=== PATIENT | male | born 1995 | race Caucasian/White ===

== ENCOUNTER 2021-08-02 08:28 | Emergency (ER) | payer OTHER, SELFPAY ==
[2021-08-02 08:35] VITALS: BP 147/88; PULSE 58; RESP 18; TEMP 36.4; O2SAT 99; BMI 27.1
--- NOTE | 2021-08-02 08:54 | ED_ITS ---
HPI - Abdominal Pain General Chief Complaint: Abdominal Pain Stated Complaint: pain and cramps on rt side Time Seen by Provider: 08/02/21 08:43 Source: patient Mode of arrival: Ambulatory History of Present Illness HPI narrative: The patient awoke with right flank pain, radiating to his testicles. His urine is dark. He was well when he went to bed last night. He has nausea now, no vomiting. His bowel movements have been normal. He has been eating and drinking well, dehydration seems unlikely. He has no fever chills. He denies dysuria. has no history of kidney stones. He is otherwise well. He has no chronic medical problems. He is on no meds. 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 Related Data Previous Rx's Medication Instructions Recorded hydrocodone 5 mg-acetaminophen 325 1 tab PO Q4-6H PRN #14 tab 08/02/21 mg tablet ondansetron 4 mg disintegrating 4 mg PO Q4-6H PRN #15 tab 08/02/21 tablet tamsulosin 0.4 mg capsule (Flomax) 0.4 mg PO DAILY #10 cap 08/02/21 Allergies Allergy/AdvReac Type Severity Reaction Status Date / Time No Known Drug Allergies Allergy Verified 08/02/21 08:51 Review of Systems Constitutional Constitutional: Reports as per HPI, Denies chills, Denies fatigue, Denies fever(s) and Denies headache(s) ENT Ears, Nose, Mouth, and Throat: Denies dizziness, Denies headache(s) and Denies sore throat Cardiovascular Cardiovascular: Denies chest pain, Denies syncope, Denies rapid heart rate and Denies dyspnea Respiratory Respiratory: Denies chest congestion, Denies cough and Denies dyspnea Gastrointestinal Gastrointestinal: Reports as per HPI Genitourinary Genitourinary: Reports as per HPI Musculoskeletal Musculoskeletal: Reports back pain Integumentary/Breasts Skin/Breast: Denies lesions and Denies rash Neurologic Neurologic: Denies dizziness, Denies syncope and Denies headache(s) Endocrine Endocrine: Denies fatigue Hematologic/Lymphatic On Anticoagulants: No Patient History Medical History (Updated 08/02/21 @ 12:33 by Jamar Kaufman MD) Healthy adult Surgical History (Updated 08/02/21 @ 09:55 by Jamar Kaufman MD) No significant past surgical history Social History Smoking Status: Never smoker Smoking Status: Never smoker alcohol intake frequency: 0-2 drinks per day Substance Use Type: does not use Exam Initial Vital Signs Initial Vital Signs: Vital Signs Temperature 97.6 F 08/02/21 08:35 Pulse Rate 58 L 08/02/21 08:35 Respiratory Rate 18 08/02/21 08:35 Blood Pressure 147/88 H 08/02/21 08:35 Pulse Oximetry 99 08/02/21 08:35 Const General: cooperative, healthy appearing, comfortable and well groomed [facility] Head: normocephalic and atraumatic Face and sinus: normal facial exam Mouth: oral mucosae normal Eyes General: appearance normal, both eyes and all related structures Resp Auscultation: clear to auscultation bilaterally Cardio Rate: regular rate Rhythm: regular rhythm Heart Sounds: S1 normal, S2 normal and no murmurs GI Inspection: normal to inspection Palpation: soft, No mass and No tender Percussion: normal to percussion Auscultation: normal bowel sounds Back/Spine/Pelvis Back: No back tenderness Skin General: no rashes or lesions noted Neuro General: patient alert and patient oriented x3 Extrem General: normal to inspection and no calf tenderness Psych Appearance: grossly normal Course Course Course Narrative: The patient has been hydrated. He has received Toradol for pain. The pain radiated from his right mid back to his right mid abdomen. 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 He did vomit once, nausea does not persist. CT rev ealed an obstructing 3 mm stone at the right proximal ureter. He has been started on Flomax. Hematuria persists. Orders Ordered: ED Orders 08/02/21 08:45 CKMB Panel (CK + CKMB) Stat Complete Blood Count AUTO DIFF Stat Comprehensive Metabolic Panel Stat Lipase Stat 08/02/21 10:50 Ictotest Urine Stat Urine Culture Stat Urine Microscopic Stat 08/02/21 11:47 CT kidney ureter bladder (KUB) Stat Discontinued Medications Sodium Chloride (Normal Saline 0.9%) 1,000 mls @ 1,000 mls/hr IV BOLUS ONE Stop: 08/02/21 09:51 Last Infusion: 08/02/21 10:00 Dose: 0 mls/hr Documented by: Admin: 08/02/21 08:57 Dose: 1,000 mls/hr Documented by: ROBERT Sodium Chloride (Normal Saline 0.9%) 1,000 mls @ 1,000 mls/hr IV BOLUS ONE Stop: 08/02/21 10:43 Last Infusion: 08/02/21 11:21 Dose: 0 mls/hr Documented by: Admin: 08/02/21 10:01 Dose: 1,000 mls/hr Documented by: ROBERT Ketorolac Tromethamine (Ketorolac 30 Mg/Ml Vial) 30 mg IV NOW ONE Stop: 08/02/21 08:54 Last Admin: 08/02/21 08:57 Dose: 30 mg Documented by: ROBERT Morphine Sulfate (Morphine 4 Mg/Ml Inj) 4 mg IM NOW ONE Stop: 08/02/21 08:53 Last Admin: 08/02/21 08:57 Dose: Not Given Documented by: ROBERT Ondansetron HCl (Ondansetron 4 Mg/2 Ml Inj) 4 mg IV NOW ONE Stop: 08/02/21 08:53 Last Admin: 08/02/21 08:57 Dose: 4 mg Documented by: ROBERT Tamsulosin HCl (Tamsulosin 0.4 Mg Capsule) 0.4 mg PO NOW ONE Stop: 08/02/21 12:16 Last Admin: 08/02/21 12:22 Dose: 0.4 mg Documented by: KEN Vital Signs Vital signs: Vital Signs - 8 hr 08/02/21 08:35 08/02/21 11:00 08/02/21 11:30 Temperature 97.6 F Pulse Rate 58 L 80 82 Respiratory Rate 18 Blood Pressure 147/88 H 126/72 127/71 Pulse Oximetry 99 100 98 MDM - Abdominal Pain Lab Data Result diagrams: 08/02/21 08:45 08/02/21 08:45 Labs: Lab Results 08/02/21 08/02/21 08/02/21 Range/Units 08:45 08:45 10:50 WBC 5.2 (4.5-11.0) X10^3/uL RBC 4.74 (4.5-5.9) X10^6/uL Hgb 15.3 (13.5-17.5) g/dL Hct 44.6 (41-53) % MCV 94.0 (80-100) fL MCH 32.3 (26-34) PG MCHC 34.4 (30-36) % RDW 13.3 (11.6-14.8) % Plt Count 292 (150-400) X10^3/uL Neut % (Auto) 55.6 (50-75) % Lymph % (Auto) 30.5 (25-40) % [place] % (Auto) 9.7 (3-14) % Eos % (Auto) 3.3 (2-4) % Baso % (Auto) 0.9 (0-2) % Neut # (Auto) 2900 (9881-1523) /uL Lymph # (Auto) 1600 (3979-8704) /uL [place] # (Auto) 500 (0-900) /uL Eos # (Auto) 200 (0-450) /uL Baso # (Auto) 0 (0-100) /uL Sodium 140 (137-145) mmol/L Potassium 4.1 (3.4-5.1) mmol/L Chloride 104 (98-107) mmol/L Carbon Dioxide 27 (22-32) mmol/L BUN 21 H (9-20) mg/dL Creatinine 1.55 H (0.66-1.25) mg/dL Estimated GFR 54.9 L (>60) mL/min BUN/Creatinine Ratio 13.5 (6-22) Glucose 111 H (70-100) mg/dL Calcium 9.5 (8.4-10.2) mg/dL Total Bilirubin 0.8 (0.2-1.3) mg/dL AST 30 (17-59) IU/L ALT 20 (<50) IU/L Alkaline Phosphatase 69 (38-126) U/L Total Creatine Kinase 168 (55-170) U/L CK-MB (CK-2) 0.69 (<2.37) ng/mL CK-MB (CK-2) Rel Index 0.4 L (1.5-5.0) % Total Protein 7.7 (6.3-8.2) g/dL Albumin 4.8 (3.5-5.0) g/dL Globulin 2.9 (1.7-4.1) g/dL Albumin/Globulin Ratio 1.7 (1.0-2.8) Lipase 71 (23-300) U/L Ur Bilirubin Confirm (Negative) Urine RBC >100/hpf H (0-5/HPF) Urine WBC 1-5/hpf (0-5/HPF) Ur Squamous Epith Cells 0-1 /hpf (0-5/HPF) Urine Bacteria None seen (None) Urine Mucus 2+ H (Negative) Ur Culture Indicated? Specimen cultured 08/02/21 Range/Units 10:50 WBC (4.5-11.0) X10^3/uL RBC (4.5-5.9) X10^6/uL Hgb (13.5-17.5) g/dL Hct (41-53) % MCV (80-100) fL MCH (26-34) PG MCHC (30-36) % RDW (11.6-14.8) % Plt Count (150-400) X10^3/uL Neut % (Auto) (50-75) % Lymph % (Auto) (25-40) % [place] % (Auto) (3-14) % Eos % (Auto) (2-4) % Baso % (Auto) (0-2) % Neut # (Auto) (4322-9035) /uL Lymph # (Auto) (2737-6132) /uL [place] # (Auto) (0-900) /uL Eos # (Auto) (0-450) /uL Baso # (Auto) (0-100) /uL Sodium (137-145) mmol/L Potassium (3.4-5.1) mmol/L Chloride (98-107) mmol/L Carbon Dioxide (22-32) mmol/L BUN (9-20) mg/dL Creatinine (0.66-1.25) mg/dL Estimated GFR (>60) mL/min BUN/Creatinine Ratio (6-22) Glucose (70-100) mg/dL Calcium (8.4-10.2) mg/dL Total Bilirubin (0.2-1.3) mg/dL AST (17-59) IU/L ALT (<50) IU/L Alkaline Phosphatase (38-126) U/L Total Creatine Kinase (55-170) U/L CK-MB (CK-2) (<2.37) ng/mL CK-MB (CK-2) Rel Index (1.5-5.0) % Total Protein (6.3-8.2) g/dL Albumin (3.5-5.0) g/dL Globulin (1.7-4.1) g/dL Albumin/Globulin Ratio (1.0-2.8) Lipase (23-300) U/L Ur Bilirubin Confirm Negative (Negative) Urine RBC (0-5/HPF) Urine WBC (0-5/HPF) Ur Squamous Epith Cells (0-5/HPF) Urine Bacteria (None) Urine Mucus (Negative) Ur Culture Indicated? Point of care testing: Urine Dip Bedside Urine Glucose Negative Bedside Urine Bilirubin + 1 Bedside Urine Ketone +/- 5 Urine Specific [place] 1.020 Bedside Urine Occult Blood +++ Bedside Urine pH 6.5 Bedside Urine Protein ++ 100 Bedside Urine Urobilinogen 0.2 Bedside Urine Nitrite - Negative Bedside Urine Leukocytes + [address] scan - abdomen/pelvis: Radiologist's Impression: [address] [address] [address] Scan Report Signed Patient: Mani Chao MR#: [id number] : 1995 Acct:[id number] Age/Sex: 25 / M Date of Service: 08/02/21 Loc: ED Accession Number: [id number] ?? Procedure: CT kidney ureter bladder (KUB) Ordering Provider: Jamar Kaufman MD PROCEDURE:? CT KIDNEY URETER BLADDER (KUB) ? INDICATIONS:? Hematuria.? Right flank pain. ? TECHNIQUE:? Axial sections were acquired from the lung bases to the pubic symphysis.? Coronal and sagittal reformats were performed.? For radiation dose reduction, the following was used: ?automated exposure control, adjustment of mA and/or kV according to patient size.? ? COMPARISON:? None. ? FINDINGS:? Image quality:? Excellent.? ? Lung bases:? Unremarkable.? ? Heart:? No significant findings. ? URINARY: Right Kidney:? Scattered very tiny subtle nonobstructing stones.? Mild hydronephrosis.? Right Ureter:? A 3 mm stone obstructs the proximal ureter at the level of the top of L4.? ? ? Left Kidney: ? No stones or hydronephrosis.? Vague paint brush calcifications. Left Ureter:? No hydroureter.? Vague paint brush calcifications. ? Bladder:? Normal wall thickness. No stones. ? ? ? ABDOMEN: Liver:? Unremarkable.? ? Gallbladder:? Unremarkable.? ? Biliary ducts:? Unremarkable.? ? Pancreas:? Unremarkable.? ? Spleen:? Unremarkable.? ? Adrenal Glands:? Unremarkable.? ? ? Stomach and Bowel:? Stomach, small bowel loops, and colon are unremarkable.? Peritoneum:? No abnormal intraperitoneal fluid.? No free air.? ? Ventral Wall: ? No hernia.? Abdominal Nodes:? No enlarged retroperitoneal or mesenteric lymph nodes.? Vessels:? Aorta and inferior vena cava are normal in size.? ? PELVIS: Pelvic Organs:? Unremarkable.? ? Pelvic Nodes: Unremarkable. Miscellaneous: No inguinal hernias are seen. ? ? ? Bones:? Unremarkable. ? IMPRESSION:? ? 1. A 3 mm stone obstructs the proximal right ureter resulting in mild right hydronephrosis. ? 2. Findings consistent with renal tubular acidosis.? There are vague paint brush calcifications.? There are tiny associated nonobstructing right renal stones.? Dictated by: Kory Jhaveri M.D. on 08/02/2021 at 12:00 ? ? Approved by: Kory Jhaveri M.D. on 08/02/2021 at 12:04?? Discharge Plan Departure Patient Disposition: Home Clinical Impression: Kidney stone on right side, Acute renal failure Instructions: DI for Kidney Stones, Acute Kidney Injury Activity Restrictions/Additional Instructions: Tylenol 2 tablets every 4 hours as needed for pain. Hydrocodone every 4 hours as needed for added pain control. Zofran every 4 hours as needed for nausea. Flomax 1 tablet daily. Your kidney function is decreased, presumably abnormal for you. This may be due to the kidney stone. Be sure you are drinking plenty of water, and remain hydrated. Feel to your urine, if you pass a stone, your doctor may want to do a chemical analysis on it. Follow-up with the [place] doctor regarding the kidney stone. If you not pass the stone you may need to see a urologist, your kidney testing will need to be monitored. Return here as needed. Prescriptions: New tamsulosin [Flomax] 0.4 mg capsule 0.4 mg PO DAILY Qty: 10 0RF ondansetron 4 mg tablet,disintegrating 4 mg PO Q4-6H PRN (Reason: nausea and vomiting) Qty: 15 0RF hydrocodone-acetaminophen 5-325 mg tablet 1 tab PO Q4-6H PRN (Reason: pain) Qty: 14 0RF Stand Alone Forms: Work Release Note
[2021-08-02] MEDS: SODIUM CHLORIDE 0.9% 1,000 ML 1000 ML IV ×2 (08:57→10:01)
[2021-08-02] MEDS: ONDANSETRON 4 MG/2 ML INJ IV (08:57)
[2021-08-02] MEDS: KETOROLAC 30 MG/ML VIAL IV (08:57)
[2021-08-02 09:01] LABS: Add Manual Diff / Slide Review NO; Basophils Absolute Auto 0 /uL (0-100); Basophils Percent Auto 0.9 % (0-2); Eosinophils Absolute Auto 200 /uL (0-450); Eosinophils Percent Auto 3.3 % (2-4); Hematocrit 44.6 % (41-53); Hemoglobin 15.3 g/dL (13.5-17.5); Lymphocytes Absolute Auto 1600 /uL (1100-4500); Lymphocytes Percent Auto 30.5 % (25-40); Mean Corpuscular HGB Conc 34.4 % (30-36); Mean Corpuscular Hemoglobin 32.3 PG (26-34); Monocytes Absolute Auto 500 /uL (0-900); Monocytes Percent Auto 9.7 % (3-14); Neutrophils Absolute Auto 2900 /uL (1500-7000); Neutrophils Percent Auto 55.6 % (50-75); Platelet Count 292 X10^3/uL (150-400); Red Blood Cell Count 4.74 X10^6/uL (4.5-5.9); Red Cell Distribution Width 13.3 % (11.6-14.8); White Blood Cell Count 5.2 X10^3/uL (4.5-11.0)
[2021-08-02 09:06] LABS: Alanine Aminotransferase 20 IU/L (<50); Albumin 4.8 g/dL (3.5-5.0); Albumin Globulin Ratio 1.7 (1.0-2.8); Alkaline Phosphatase 69 U/L (38-126); Aspartate Aminotransferase 30 IU/L (17-59); BUN Creatinine Ratio 13.5 (6-22); Bilirubin Total 0.8 mg/dL (0.2-1.3); Blood Urea Nitrogen 21 mg/dL (9-20); Calcium 9.5 mg/dL (8.4-10.2); Carbon Dioxide 27 mmol/L (22-32); Chloride 104 mmol/L (98-107); Creatine Kinase 168 U/L (55-170); Estimated Glomerular Filt Rate 54.9 mL/min (>60); Globulin 2.9 g/dL (1.7-4.1); Glucose 111 mg/dL (70-100); HEMOLYSIS < 15 (0-50); Lipase 71 U/L (23-300); Potassium 4.1 mmol/L (3.4-5.1); Sodium 140 mmol/L (137-145); Total Protein 7.7 g/dL (6.3-8.2)
[2021-08-02 09:26] LABS: CKMB % Relative Index 0.4 % (1.5-5.0); Creatine Kinase MB 0.69 ng/mL (<2.37)
[2021-08-02 11:00] VITALS: BP 126/72; PULSE 80; O2SAT 100
[2021-08-02 11:30] VITALS: BP 127/71; PULSE 82; O2SAT 98
[2021-08-02 11:31] LABS: Ictotest Urine Negative (Negative)
[2021-08-02 11:38] LABS: Bacteria Urine None Seen; Culture Indicated Urine Specimen Cultured; Mucus Urine 2+ (Negative); RBC Urine >100/HPF (0-5/HPF); Squamous Epithelial Cell Urine 0-1 /HPF (0-5/HPF); WBC Urine 1-5/HPF (0-5/HPF)
--- NOTE | 2021-08-02 11:47 | DI.CT.S_ITS ---
PROCEDURE: CT KIDNEY URETER BLADDER (KUB) INDICATIONS: Hematuria. Right flank pain. TECHNIQUE: Axial sections were acquired from the lung bases to the pubic symphysis. Coronal and sagittal reformats were performed. For radiation dose reduction, the following was used: automated exposure control, adjustment of mA and/or kV according to patient size. COMPARISON: None. FINDINGS: Image quality: Excellent. Lung bases: Unremarkable. Heart: No significant findings. URINARY: Right Kidney: Scattered very tiny subtle nonobstructing stones. Mild hydronephrosis. Right Ureter: A 3 mm stone obstructs the proximal ureter at the level of the top of L4. Left Kidney: No stones or hydronephrosis. Vague paint brush calcifications. Left Ureter: No hydroureter. Vague paint brush calcifications. Bladder: Normal wall thickness. No stones. ABDOMEN: Liver: Unremarkable. Gallbladder: Unremarkable. Biliary ducts: Unremarkable. Pancreas: Unremarkable. Spleen: Unremarkable. Adrenal Glands: Unremarkable. Stomach and Bowel: Stomach, small bowel loops, and colon are unremarkable. Peritoneum: No abnormal intraperitoneal fluid. No free air. Ventral Wall: No hernia. Abdominal Nodes: No enlarged retroperitoneal or mesenteric lymph nodes. Vessels: Aorta and inferior vena cava are normal in size. PELVIS: Pelvic Organs: Unremarkable. Pelvic Nodes: Unremarkable. Miscellaneous: No inguinal hernias are seen. Bones: Unremarkable. IMPRESSION: 1. A 3 mm stone obstructs the proximal right ureter resulting in mild right hydronephrosis. 2. Findings consistent with renal tubular acidosis. There are vague paint brush calcifications. There are tiny associated nonobstructing right renal stones. Dictated by: Kory Jhaveri M.D. on 08/02/2021 at 12:00 Approved by: Kory Jhaveri M.D. on 08/02/2021 at 12:04
[2021-08-02 12:00] VITALS: PULSE 75; O2SAT 100
[2021-08-02] MEDS: TAMSULOSIN 0.4 MG CAPSULE PO (12:22)
[2021-08-02 12:24] VITALS: BP 129/78; PULSE 89; RESP 15; O2SAT 100
[2021-08-02 12:30] VITALS: PULSE 85; O2SAT 100
== END 2021-08-02 12:44 | disposition home or self-care (01) ==
PROVIDERS: Emergency Provider Emergency Medicine
DX: N20.0 Calculus of kidney (principal); N17.9 Acute kidney failure, unspecified
CPT/HCPCS: 36415; 74176; 80053; 81003; 81015; 82550; 82553; 83690; 85025; 87086; 96361; 96374; 96375; 99284; J1885; J2405